=== PATIENT | female | born 1955 | race Two or more races ===

== ENCOUNTER 2019-12-27 21:15 | Emergency (ER) | payer BC, OTHER ==
[2019-12-27 21:25] VITALS: BP 145/78; PULSE 101; TEMP 99.7
[2019-12-27 21:49] LABS: THROAT:GRP A STREP ANTIGEN Negative (Negative)
--- NOTE | 2019-12-27 22:20 | PDOC ---
Documentation entered by Angi Urbano SCRIBE, acting as scribe for Gunnar Randhawa MD. Gunnar Randhawa MD: This documentation has been prepared by the donavonibe, Angi Urbano SCRIBE, under my direction and personally reviewed by me in its entirety. I confirm that the documentation accurately reflects all work, treatment, procedures, and medical decision making performed by me. History of Present Illness - General Chief Complaint: Sore Throat Stated Complaint: SORE THROAT, REQUESTING COVID-19 TESTING History Source: Patient Exam Limitations: No Limitations - History of Present Illness Initial Comments: 12/27/19 21:51 The patient is a 64-year-old female who presents to the emergency department with a sore throat, fever, and body aches. The patient reports shes been having several days of sore throat, body aches, and a fever. The patient reports the body aches have improved in severity since the presentation, however it is still present. Denies any known COVID exposure. Denies taking any medication for the symptoms. PAST MEDICAL HISTORY: no significant history PAST SURGICAL HISTORY: no significant history FAMILY HISTORY: no pertinent history SOCIAL HISTORY: Pt lives with a big family and is unemployed MEDICATIONS: reviewed ALLERGIES: As per nursing notes Review of system: General: +fever and body aches. No weakness, no weight loss HEENT: +sore throat. No change in vision. No ear pain CardioVascular: No chest pain or shortness of breath Respiratory:No cough, or wheezing. Gastrointestinal: no nausea, vomiting, diarrhea or constipation, No rectal bleeding Genitourinary: No dysuria, hematuria, or frequency Musculoskeletal: No joint or muscle pain or swelling Neurologic: No headache, vertigo, dizziness or loss of consciousness Psychiatric: nor depression Skin: No rashes or easy bruising Endocrine: no increased thirst or abnormal weight change Allergic: no skin or latex allergy All other systems reviewed and normal Physical exam: GENERAL: The patient is awake, alert, and fully oriented, in no acute distress. HEAD: Normal with no signs of trauma. EYES: Pupils equal, round and reactive to light, extraocular movements intact, sclera anicteric, conjunctiva clear. Throat: +erythema to the posterior oropharynx, tonsils otherwise normal, no exudate. Neck: tender left side with lymphadenopathy EXTREMITIES: Normal range of motion, no edema. NEUROLOGICAL: Normal speech, normal gait. PSYCH: Normal mood, normal affect. SKIN: Warm, Dry, normal turgor, no rashes or lesions noted. Assessment and plan: This is a 64-year-old female who comes in complaining of sore throat, body aches, fever. Patient said fever has improved however she continues to have sore throat and body aches. Patient has no known covid exposure however is requesting the covid test as well as a rapid strep. On my exam patient did have some erythema to her posterior oropharynx but no exudative pharyngitis. Rapid strep was done which was negative. COVID test was sent which will be back in 2 days. Patient discharged told to follow covered isolation procedures until she had the result of her cover test. 12/27/19 22:03 Past History - Medical History Allergies/Adverse Reactions: Allergies Allergy/AdvReac Type Severity Reaction Status Date / Time No Known Allergies Allergy Verified 12/27/19 21:21 Home Medications: Ambulatory Orders No Home Medications 0 dose .ROUTE UTDICT 11/25/13 COPD: No GI Disorders: Yes - Immunization History Immunization Up to Date: Yes - Psycho-Social/Smoking History Smoking Status: Yes Smoking History: Current every day smoker Have you smoked in the past 12 months: Yes Number of Cigarettes Smoked Daily: 12 Information on smoking cessation initiated: Yes - Substance Abuse Hx (Audit-C & DAST Scrn) How often the patient has a drink containing alcohol: Never Score: In Men: 4 or > Positive; In Women: 3 or > Positive: 0 Screen Result (Pos requires Nsg. Audit-10AR): Negative In the last yr the pt used illegal drug/Rx for NonMed reason: No Score: Yes response is considered Positive: 0 Screen Result (Positive result requires Nsg. DAST-10): Negative *Physical Exam - Vital Signs Last Vital Signs Temp Pulse Resp BP Pulse Ox 99.7 F H 101 H 18 145/78 98 12/27/19 21:19 12/27/19 21:19 12/27/19 21:19 12/27/19 21:19 12/27/19 21:19 Discharge - Discharge Information Problems reviewed: Yes Clinical Impression/Diagnosis: Pharyngitis Condition: Good Disposition: HOME - Admission No - Follow up/Referral - Patient Discharge Instructions Patient Printed Discharge Instructions: [facility] COVID-19 Isolation Protocol Additional Instructions: Read over and follow the COVID instructions for isolation. Your COVID test will take approximately 2 days to come back in the meantime follow the instructions for COVID isolation The rapid strep that was done was negative however a culture will be sent as well Return to the emergency department immediately with ANY new, persistent or worsening symptoms. Continue any medications as previously prescribed by your physician. You should follow up with your primary doctor as soon as possible regarding today's emergency department visit. . Please make sure your doctor reviews the results of your emergency evaluation. Thank you for coming to the Emergency Department today for your care. It was a pleasure to see you today. Please note that your evaluation is INCOMPLETE until you follow-up with your doctor. - Post Discharge Activity
== END 2019-12-27 21:56 | disposition home or self-care (01) ==
LOC: FER 21:15
DX: J02.9 Acute pharyngitis, unspecified (principal)
CPT/HCPCS: 87070; 87880; 99283-25; U0003